=== PATIENT | female | born 1955 | race Caucasian/White ===

== ENCOUNTER 2022-07-25 12:41 | Outpatient (CLI) | payer MEDICARE, OTHER ==
--- NOTE | 2022-07-25 20:01 | MRI Report ---
PROCEDURE: WRIST WO - LT INDICATIONS: LEFT WRIST PAIN TECHNIQUE: Noncontrast coronal proton density fast spin echo and T2 fast spin echo with fat saturation; coronal 3-D gradient echo, axial T1 spin echo and T2 fast spin echo with fat saturation, sagittal T1 spin ech o through the wrist. COMPARISON: None. FINDINGS: Image quality: Excellent. Bones and cartilage: Osteoarthritic changes are noted throughout wrist joints more notably at first C MC joint with joint space narrowing, subchondral sclerosis and mild edema. Subcortical cystic changes are seen in distal trapezium. Marrow edema is also seen involving pisiform and distal portion of tri quetrum without definite fracture line concerning for bony contusion. No fracture or dislocation. No evidence of avascular necrosis. Carpal ligaments: The scapholunate and lunotriquetral ligaments appear intact. In the absence of in tra-articular contrast, the extrinsic carpal ligaments are not well identified. On sagittal images, the pisohamate ligament appears intact. Triangular fibrocartilage complex: Signal abnormality involving triangular fibrocartilage near its ul cirilo insertion is seen concerning for focal TFCC tear. The adjacent meniscal homolog appears normal in the absence of intra-articular contrast. The extensor carpi ulnaris tendon is thickened with subtle intrasubstance T2 hyperintense signal at the level of ulnar styloid. Tendons and soft tissues: The carpal tunnel structures appear normal, including the median nerve. T he ulnar nerve appears normal within Guyon's canal. Fluid distention of first extensor compartment is seen. Rest of the extensor and flexor tendons are grossly intact. No soft tissue ganglion cysts. IMPRESSION: 1. 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 Suggestion of meryl ny contusion involving pisiform and adjacent distal portion of triquetrum. No definite fracture or di slocation. No evidence of avascular necrosis. 2. Intrinsic and extrinsic wrist ligaments are grossly intact. 3. Finding is concerning for subtle triangular fibrocartilage tear near its ulnar insertion. 4. Tendinosis and low-grade intrasubstance partial thickness tear involving extensor carpi ulnaris te ndon at the level of ulnar styloid. Suggestion of low-grade tenosynovitis involving first extensor co mpartment with fluid distending tendon sheath. Reviewed by: Cahse Blankenship MD on 07/25/2022 8:00 PM PDT Approved by: Chase Blankenship MD on 07/25/2022 8:00 PM PDT Station ID: [id number]
== END 2022-07-25 12:42 | disposition home or self-care (01) ==
LOC: DI 12:41
PROVIDERS: ATTEND Family Medicine
DX: M19.032 Primary osteoarthritis, left wrist (principal); S66.822A Laceration of other specified muscles, fascia and tendons at wrist and hand level, left hand, initial encounter

== ENCOUNTER 2023-10-07 14:55 | Outpatient (CLI) | payer MEDICARE, OTHER ==
--- NOTE | 2023-10-07 16:00 | DEXA Report ---
PROCEDURE: Dexa Spine and/or Hip INDICATIONS: POST MENOPAUSAL TECHNIQUE: Dual energy x-ray absorptiometry (DXA) was performed on a [employer] System. Regions measur ed are the AP Spine, femoral neck, and if needed forearm. COMPARISON: None FINDINGS: Lumbar Spine: Bone Mineral Density: 1.007 g/cm/cm,T score: -1.4. Left Femoral Neck: Bone Mineral Density: 0.755 g/cm/cm, T score: -2.0. Left Hip: Bone Mineral Density: 0.839 g/cm/cm,T score: -1.3. (T score greater or equal to -1.0: NORMAL) (T score from -1.1 to -2.4: OSTEOPENIA) (T score less than or equal to -2.5 to: OSTEOPOROSIS) Impression: By WHO criteria, this patient has low bone density (osteopenia). Patients with diagnosis of osteoporosis or osteopenia should have regular bone mineral density assess ment. For those eligible for Medicare, routine testing is allowed once every 2 years. Testing frequ ency can be increased for patients who have rapidly progressing disease or for those who are receivin g medical therapy to restore bone mass. Reviewed by: Hemal Pickens MD on 10/07/2023 3:59 PM PDT Approved by: Hemal Pickens MD on 10/07/2023 3:59 PM PDT Station ID: [id number]
== END 2023-10-07 14:56 | disposition home or self-care (01) ==
LOC: DI 14:55
PROVIDERS: ATTEND Nurse Practitioner Family
DX: M85.89 Other specified disorders of bone density and structure, multiple sites (principal); Z78.0 Asymptomatic menopausal state